=== PATIENT | female | born 1935 | race African-American/Black ===

== ENCOUNTER 2023-08-21 11:33 | Inpatient (IN) | payer OTHER ==
[~2023-08-21] VITALS: Ht 162.6 cm; Wt 49.4 kg
[2023-08-21 11:39] VITALS: O2SAT 99
[2023-08-21] MEDS: SODIUM CHLORIDE 0.9% 500 ML IV ONE (13:00)
[2023-08-21 13:13] LABS: BASOPHILS % 0.2 % (0.0-2.0); EOSINOPHILS % 0.1 % (0.0-5.0); HEMOGLOBIN. 8.9 g/dL (12.0-16.0); LYMPHOCYTES % 11.3 % (20.0-50.0); MEAN CORPUSCULAR HEMOGLOBIN 27.9 pg (28.0-32.0); MEAN CORPUSCULAR HGB CONC 32.8 g/dL (31.0-37.0); MEAN PLATELET VOLUME 6.6 fl (7.4-10.4); MONOCYTES % 4.7 % (2.0-8.0); NEUTROPHILS % 83.7 % (40.0-76.0); PLATELET 609 x1000/uL (130-400); RED BLOOD CELL COUNT 3.18 mill/uL (4.2-5.4); RED CELL DISTRIBUTION WIDTH 14.8 % (11.6-14.6); WHITE BLOOD COUNT 20.1 x1000/uL (4.5-11.0)
[2023-08-21 13:19] LABS: CHLORIDE 109 mEq/L (98-107); POTASSIUM 4.9 mEq/L (3.5-5.1); SODIUM 137 mEq/L (136-145)
[2023-08-21 13:20] LABS: CALCIUM 8.4 mg/dL (8.7-10.4); CARBON DIOXIDE 22 mEq/L (21-32)
[2023-08-21 13:25] LABS: CREATININE 0.7 mg/dL (0.6-1.0); GLUCOSE 172 mg/dL (70-105); UREA NITROGEN BLOOD 26 mg/dL (9-23)
[2023-08-21 13:26] LABS: LACTIC ACID 2.9 mmol/L (0.4-2.0)
[2023-08-21 13:32] LABS: PROTHROMBIN TIME 11.6 sec (9.6-11.0)
[2023-08-21] MEDS ORDERED: ACETAMINOPHEN 325MG TABLET PO PRN (20:15)
[2023-08-21] MEDS ORDERED: ONDANSETRON HCL 4MG/2ML INJ IV PRN (20:15)
[2023-08-21] MEDS ORDERED: GUAIFENESIN 200MG/10ML SUGAR FREE UDC PO PRN (20:15)
[2023-08-21] MEDS: PANTOPRAZOLE SODIUM 40 MG/VIAL IV SCH (21:42)
[2023-08-21] MEDS: DEXT 5%/0.45% NACL 500ML 500 ML IV ONE (21:42)
[2023-08-21] MEDS: PIPERACILLIN/TAZO 3.375G/50ML 50 ML IV SCH (22:04)
[2023-08-21] MEDS: KETOROLAC 15MG/ML VIAL IV PRN (22:10)
[2023-08-21 22:29] LABS: CALCIUM 8.7 mg/dL (8.7-10.4)
[2023-08-21 22:30] VITALS: BP 102/41; PULSE 99; RESP 18; TEMP 97.7
[2023-08-21 22:35] LABS: PHOSPHORUS 3.5 mg/dL (2.5-4.9)
[2023-08-21 22:35] LABS: IRON 21 ug/dL (50-170); TRIGLYCERIDE 75 mg/dL (0-150); URIC ACID 8.3 mg/dL (3.1-7.8)
[2023-08-21 22:36] LABS: LDL CHOLESTEROL 69 mg/dL (5-100); TROPONIN I HIGH SENSITIVITY 6 ng/L (3.0-34)
[2023-08-21 22:37] LABS: CHOLESTEROL 119 mg/dL (<200); HDL CHOLESTEROL 37 mg/dL (>65); TOTAL IRON BINDING CAPACITY 423 ug/dl (250-425)
[2023-08-21] MEDS ORDERED: DEXT 5%/0.45% NACL 500ML 500 ML IV ONE (23:15)
[2023-08-21] MEDS ORDERED: NALOXONE HCL 0.4MG/ML VIAL IV PRN (23:15)
[2023-08-22] MEDS: HYDROCODONE/ACETAMINOPHEN 5/325MG TABLET PO PRN (01:14)
[2023-08-22] MEDS: DEXT 5%/0.45% NACL 1000ML IV NR (01:15)
[2023-08-22 08:00] VITALS: BP 124/48; PULSE 81; RESP 18; TEMP 96.2
[2023-08-22 09:35] LABS: BASOPHILS % 0.3 % (0.0-2.0); EOSINOPHILS % 0.2 % (0.0-5.0); HEMATOCRIT. 27.6 % (36.0-48.0); HEMOGLOBIN. 8.6 g/dL (12.0-16.0); LYMPHOCYTES % 19.4 % (20.0-50.0); MEAN CORPUSCULAR HEMOGLOBIN 26.8 pg (28.0-32.0); MEAN CORPUSCULAR HGB CONC 31.1 g/dL (31.0-37.0); MEAN CORPUSCULAR VOLUME 86.2 fL (81.0-99.0); MONOCYTES % 6.1 % (2.0-8.0); PLATELET 613 x1000/uL (130-400); RED CELL DISTRIBUTION WIDTH 14.9 % (11.6-14.6); WHITE BLOOD COUNT 14.5 x1000/uL (4.5-11.0)
[2023-08-22 09:41] LABS: CHLORIDE 110 mEq/L (98-107); POTASSIUM 4.7 mEq/L (3.5-5.1); SODIUM 140 mEq/L (136-145)
[2023-08-22 09:42] LABS: CALCIUM 8.5 mg/dL (8.7-10.4); CARBON DIOXIDE 24 mEq/L (21-32)
[2023-08-22 09:47] LABS: CREATININE 0.7 mg/dL (0.6-1.0); GLUCOSE 94 mg/dL (70-105); UREA NITROGEN BLOOD 24 mg/dL (9-23)
[2023-08-22 09:48] LABS: CREATINE KINASE 35 IU/L (34-145)
[2023-08-22 09:50] LABS: T4 FREE 0.64 ng/dL (0.89-1.76); THYROID STIMULATING HORMONE 2.97 uIU/mL (0.55-4.78)
[2023-08-22 10:05] LABS: FOLIC ACID (FOLATE) SERUM 6.85 ng/mL (>5.38)
[2023-08-22 10:06] LABS: VITAMIN B12 SERUM 593 pg/mL (211-911)
[2023-08-22 12:00] VITALS: PULSE 61; RESP 18; TEMP 97.1
[2023-08-22] MEDS ORDERED: ENOXAPARIN 60MG/0.6ML SYR SUBCUT SCH (12:00)
[2023-08-22] MEDS: DIATR MEGLU/DIATRIZOATE SOLN 30ML PO NR (12:10)
[2023-08-22] MEDS: ENOXAPARIN 60MG/0.6ML SYR SUBCUT SCH (12:10)
[2023-08-22] MEDS: FERROUS SULFATE 300MG/5ML UDC PO SCH (12:10)
[2023-08-22 16:00] VITALS: BP 129/57; PULSE 102; RESP 18; TEMP 96.1
[2023-08-22] MEDS: ACETAMINOPHEN 325MG TABLET PO PRN (17:22)
[2023-08-22 20:00] VITALS: BP 117/49; PULSE 75; RESP 17; TEMP 96.4
[2023-08-23] MEDS ORDERED: FAMOTIDINE 20MG/2ML VIAL IV SCH (09:00)
== END 2023-08-22 22:25 | disposition short-term general hospital (02) | DRG 871 ==
LOC: EDBD 11:44 → ER 11:44 → 5WST 13:42 → EDBEDREQTM 13:56 → EDBEDREQ 13:56 → 8WST 23:00
PROVIDERS: ADMIT Internal Medicine; ATTEND Internal Medicine
DX: A41.9 Sepsis, unspecified organism (principal); L89.153 Pressure ulcer of sacral region, stage 3; I67.82 Cerebral ischemia; D64.9 Anemia, unspecified; E86.0 Dehydration; N63.20 Unspecified lump in the left breast, unspecified quadrant; I51.7 Cardiomegaly; R73.9 Hyperglycemia, unspecified; R29.6 Repeated falls; I49.1 Atrial premature depolarization; D75.838 Other thrombocytosis; I45.10 Unspecified right bundle-branch block; D49.89 Neoplasm of unspecified behavior of other specified sites; Z91.81 History of falling; Z79.899 Other long term (current) drug therapy; W01.0XXA Fall on same level from slipping, tripping and stumbling without subsequent striking against object, initial encounter; Y93.89 Activity, other specified; Y92.89 Other specified places as the place of occurrence of the external cause; Y99.8 Other external cause status
CPT/HCPCS: 36415; 71045; 80048; 80061; 82040; 82310; 82550; 82607; 82746; 83036; 83540; 83550; 83605; 83735; 83880; 84100; 84145; 84439; 84443; 84484; 84550; 85025; 85379; 86850; 86900; 93005; 93306; 93970; 99285; C1893; J1650; J1885; J2543; J7030; Q9963

== ENCOUNTER 2023-09-26 08:14 | Emergency (ER) | payer MEDICARE, OTHER ==
[~2023-09-26] VITALS: Ht 165.1 cm; Wt 42.0 kg
[2023-09-26] MEDS: VANCOMYCIN 1G PREMIX 200 ML IV ONE (08:30)
[2023-09-26] MEDS ORDERED: ETOMIDATE 2MG/ML 10ML VIAL IV ONE (08:30)
[2023-09-26] MEDS ORDERED: SUCCINYLCHOLINE CHLORIDE 200MG/10ML IV ONE (08:30)
[2023-09-26] MEDS: PROPOFOL 10MG/ML 100ML 100 ML IV ONE (08:30)
[2023-09-26] MEDS: PIPERACILLIN/TAZO 3.375G/50ML 50 ML IV ONE (08:37)
[2023-09-26] MEDS: ACETAMINOPHEN 650MG SUPP PR SCH (08:37)
[2023-09-26] MEDS: NALOXONE HCL 1MG/ML 2ML VIAL IV ONE (08:37)
[2023-09-26] MEDS: SODIUM CHLORIDE 0.9% 1000ML BAG (SEPSIS BOLUS) IV ONE (09:01)
[2023-09-26 09:31] LABS: BG BASE EXCESS -9.2 mmol/L (-2.0-2.0); BG CARBOXYHEMOGLOBIN 0.3 % (0.5-1.5); BG FRACTION INSPIRED OXYGEN 100; BG HCO3 ACT 13.6 mmol/L (22.0-26.0); BG METHEMOGLOBIN 0.3 % (0.0-1.5); BG OXYHEMOGLOBIN 99.4 % (94.0-97.0); BG PO2 348.3 mmHg (75.0-100.0); BG SAMPLE SITE RIGHT BRACHIAL; BG TOTAL HEMOGLOBIN 9.1 g/dL (12.0-18.0); BG VENT MODE MASK - NRB
[2023-09-26 10:13] LABS: BASOPHILS % 0.2 % (0.0-2.0); DIFFERENTIAL COMMENT 0; EOSINOPHILS % 0.1 % (0.0-5.0); HEMATOCRIT. 43.3 % (36.0-48.0); HEMOGLOBIN. 12.2 g/dL (12.0-16.0); LYMPHOCYTES % 33.5 % (20.0-50.0); MEAN CORPUSCULAR HEMOGLOBIN 27.1 pg (28.0-32.0); MEAN CORPUSCULAR HGB CONC 28.1 g/dL (31.0-37.0); MEAN CORPUSCULAR VOLUME 96.5 fL (81.0-99.0); MEAN PLATELET VOLUME 8.4 fl (7.4-10.4); MONOCYTES % 5.3 % (2.0-8.0); NEUTROPHILS % 60.9 % (40.0-76.0); PLATELET 166 x1000/uL (130-400); RED BLOOD CELL COUNT 4.49 mill/uL (4.2-5.4); RED CELL DISTRIBUTION WIDTH 20.7 % (11.6-14.6); WHITE BLOOD COUNT 21.2 x1000/uL (4.5-11.0)
[2023-09-26 10:16] LABS: CHLORIDE 122 mEq/L (98-107)
[2023-09-26 10:17] LABS: CARBON DIOXIDE 15 mEq/L (21-32)
[2023-09-26 10:18] LABS: CALCIUM 7.7 mg/dL (8.7-10.4); INR 1.2; PROTHROMBIN TIME 13.2 sec (9.6-11.0)
[2023-09-26 11:30] LABS: POTASSIUM 5.8 mEq/L (3.5-5.1); SODIUM 153 mEq/L (136-145)
[2023-09-26 11:36] LABS: GLUCOSE 80 mg/dL (70-105); UREA NITROGEN BLOOD 71 mg/dL (9-23)
[2023-09-26 11:38] LABS: ALANINE AMINOTRANSFERASE 18 IU/L (10-49); ALBUMIN 2.2 g/dL (3.2-4.8); ASPARTATE AMINOTRANSFERASE 34 IU/L (<34); BILIRUBIN TOTAL 0.3 mg/dL (0.1-1.0)
[2023-09-26 11:39] LABS: PROTEIN TOTAL 5.3 g/dL (6.0-8.3)
[2023-09-26 11:51] LABS: CREATININE 1.6 mg/dL (0.6-1.0)
[2023-09-26 11:54] LABS: TROPONIN I HIGH SENSITIVITY 317 ng/L (3.0-34)
[2023-09-26 11:56] LABS: LACTIC ACID 4.6 mmol/L (0.4-2.0)
[2023-09-26] MEDS: INSULIN REGULAR (HUMULIN R) 1000UNITS/10ML VIAL IV ONE (12:10)
[2023-09-26] MEDS: SODIUM BICARBONATE 8.4% 50MEQ/50ML SYR IV ONE (12:10)
[2023-09-26] MEDS: CALCIUM CHLORIDE 1GM/10ML SYR IV ONE (12:10)
[2023-09-26] MEDS: DEXTROSE 50% WATER 50ML SYRINGE IV ONE (12:11)
[2023-09-26 12:28] VITALS: PULSE 122; RESP 24; O2SAT 95
[2023-09-26] MEDS: ALBUTEROL (0.083%) 2.5MG/3ML NEB HHN ONE (12:28)
[2023-09-26 12:33] VITALS: BP 115/46; PULSE 119; RESP 19; TEMP 38.61420; O2SAT 98
== END 2023-09-26 13:50 ==
LOC: ER 08:14
DX: A41.9 Sepsis, unspecified organism (principal); R41.82 Altered mental status, unspecified
CPT/HCPCS: 99291; 96375; 96365; 80053; 82962; 83605; 85025; 85610; 87040; 84484; 36415; 84145; 71045; 82805; 82375; 93005; 94644; 96368; 36600; J3490 ×2; J2310; J2543; J3370; J7030; J1815